=== PATIENT | female | born 1970 | race Caucasian/White ===

== ENCOUNTER → 2016-08-20 | Outpatient (CLI) | payer BC ==
[~2016-08-20] VITALS: Ht 160 cm; Wt 63.5 kg
[~2016-08-20] MED LIST: ADVIL200 MG PO; AFRIN,GENASAL D15 ML BOTH NARES; ATIVAN0.5 MG PO; ENDOCET 5-3251 EACH PO; MIDOL COMPLETE1 EACH PO; MULTIPLE VITAM1 EAC1 PO; NITROSTAT0.4 MG SL; OMEPRAZOLE40 M1 PO; ZYRTEC-D1 TABLE1 PO
== END | disposition home or self-care (01) ==
LOC: AMB 06:57
PROC: 0DBK8ZX Excision of Ascending Colon, Via Natural or Artificial Opening Endoscopic, Diagnostic (ICD-10-PCS; principal; 2016-08-20)
DX: R14.0 Abdominal distension (gaseous) (principal); K59.00 Constipation, unspecified; K62.89 Other specified diseases of anus and rectum; Z87.891 Personal history of nicotine dependence; Z83.71 Family history of colonic polyps; Z82.49 Family history of ischemic heart disease and other diseases of the circulatory system; Z88.8 Allergy status to other drugs, medicaments and biological substances
CPT/HCPCS: 88305; J2250; J3010